=== PATIENT | female | born 2000 | race Caucasian/White ===

== ENCOUNTER 2020-11-26 10:06 | Emergency (ER) | payer OTHER, SELFPAY ==
[2020-11-26 10:30] VITALS: BP 131/69; PULSE 71; RESP 12; TEMP 37.7; O2SAT 100
--- NOTE | 2020-11-26 10:45 | ED.SKABFB ---
HPI - Skin/Abscess/Foreign Bdy General Chief complaint: Skin/Abscess/Foreign Body Stated complaint: rash Time Seen by Provider: 11/26/20 10:45 Source: patient Mode of arrival: ambulatory Limitations: no limitations History of Present Illness HPI narrative: Sebastián Du is a 20 yo female with no prior PMH comes [facility] with a rash on her left breast between the 2 breasts down on the left lower flank and abdomen that started about a month ago but has begun to spread. It is pruritic initially but lesions are expanding. Patient believes that she has ringworm, fine rash behind the lesion she is complaining about Related Data Home Medications Medication Instructions Recorded Confirmed norgestimate-ethinyl estradiol 1 tablet PO DAILY 11/26/20 11/26/20 [[id number]] Allergies Allergy/AdvReac Type Severity Reaction Status Date / Time codeine AdvReac Vomiting Verified 11/26/20 10:23 Review of Systems Review of Systems: Narrative: CONSTITUTIONAL: Denies fever, chills, sweats. EYES: Denies visual changes, redness, discharge. ENT: Denies rhinorrhea, congestion, sore throat, otalgia. CARDIOVASCULAR: Denies chest pain, palpitations, edema. RESPIRATORY: Denies dyspnea, wheezing, cough GASTROINTESTINAL: Denies abdominal pain, nausea, vomiting, diarrhea. GENITOURINARY: Denies dysuria, hematuria, abnormal discharge SKIN: Mild rash and abdomen and chest with circular lesions on the breasts and lower left flank that are at times pruritic NEUROLOGIC: Denies numbness, or focal weakness. PSYCHIATRIC: Denies anxiety or depression. PMFSH Past Medical History Medical History No acute medical problems Family History Family History Other No active medical problems Social History Social History Smoking status: Never smoker Alcohol intake: current Comments At time of signature, I agree with nursing past medical, surgical, social and family history. There is no relevant family history pertinent to the presenting complaint. Exam Narrative: Exam Narrative: GENERAL: This is a well-nourished, well-developed patient, in mild distress. HEAD: normocephalic, atraumatic. EYES: Sclera clear/white. Vision is grossly intact. EARS: External ears normal, auditory canals clear and without drainage, TMs normal without perforation. Hearing grossly intact. NOSE: External nose normal without nasal discharge, nares without redness, no rhinorrhea. THROAT: Mucous membranes moist, NECK: Neck supple, CARDIOVASCULAR: Regular rate and rhythm without murmurs, gallops, or rubs. RESPIRATORY: Clear to auscultation. Breath sounds equal bilaterally. No wheezes, rales, or rhonchi. GASTROINTESTINAL: Abdomen soft, SKIN: warm, intact with no suspicious lesions - red circular lesions - fine red rash across breasts NEURO: awake, alert, and oriented to person, place and time. There were no obvious focal neurologic abnormalities. Steady gait EXTREMITIES: Normal range of motion. BACK: Nontender without deformity Course Course Emergency Course: pt is here with month long circular lesions, mildly pruritic; pt has tried use hydrocortisone started on triamcinolone- and hydrocortisone lotion to rash bid- keep area clean and dry follow up with pcp Vital Signs Vital signs: Vital Signs Temperature 99.9 F H 11/26/20 10:30 Pulse Rate 71 11/26/20 10:30 Respiratory Rate 12 11/26/20 10:30 Blood Pressure 131/69 11/26/20 10:30 Pulse Oximetry 100 11/26/20 10:30 Temperature 99.4 F 11/26/20 10:58 Pulse Rate 71 11/26/20 10:30 Respiratory Rate 12 11/26/20 10:30 Blood Pressure 131/69 11/26/20 10:30 Pulse Oximetry 100 11/26/20 10:30 MDM - Skin/Abscess/Foreign Bdy Differential Diagnosis Differential diagnosis: Likely abscess of skin or subcutaneous t
[2020-11-26 10:58] VITALS: TEMP 37.4
== END 2020-11-26 11:16 | disposition home or self-care (01) ==
PROVIDERS: Emergency Provider Nurse Practitioner
DX: R21 Rash and other nonspecific skin eruption (principal)
CPT/HCPCS: 99213; G0463